=== PATIENT | female | born 1985 | race Caucasian/White ===

== ENCOUNTER 2023-06-12 10:20 | Emergency (ER) | payer OTHER, SELFPAY ==
[2023-06-12 10:39] VITALS: BP 124/74; PULSE 58; RESP 16; TEMP 36.6; O2SAT 99; BMI 26.5
--- NOTE | 2023-06-12 11:47 | W.ED.FALL ---
HPI - Fall General: Chief Complaint: Fall Stated Complaint: fall off a horse, head lac, rib pain Time Seen by Provider: 06/12/23 11:25 History of Present Illness: 37-year-old female was [place] horse [place] a trail. She got a spiderweb in her eyes and used both of her hands to remove it. She made a loud noise when the spiderweb hit her face. This scared the horse who ultimately bucked her off. She landed on her right side. She has a scalp laceration to the right posterior temporal region. It is hemostatic at this time. She reports her tetanus is up-to-date. She does not take blood thinners. No loss of consciousness. She has soreness to the touch of the scalp but not an internal headache. Denies symptoms of concussion. Denies neck pain, spine pain, abdominal pain, hip pain, lower extremity pain, left upper extremity pain, right upper extremity pain. She does have abrasions and contusions along the right lateral chest. She reports that it does not hurt to take a deep breath and she is not having any shortness of breath. She believes that it is superficial. She does not want a chest x-ray. She reports a mild tenderness over her right lateral thigh because she was wearing a pocket knife and when she felt the knife (albeit closed) pressed into the soft tissue of her thigh and bruised her. She is refusing any pain medication. Review of Systems Narrative: Pertinent Positives: scalp lac right chest wall bruising/abrasions bruise right thigh Pertinent Negatives: No LOC, n/v, visual changes, confusion, dizziness, spine/neck pain, abd pain, trouble walking, trouble with coordination 12 Point ROS performed and otherwise negative unless stated here or HPI. Physical Exam Narrative: EXAM NARRATIVE: No midline TTP or step-offs of cervical, thoracic, and lumbar spine; normal ROM of bilateral shoulders, elbows, wrists, hips, knees, and ankles with no palpable bony deformity or tenderness; pelvis stable. Primary Survey: Airway: Intact Breathing: Equal Circulation: Intact, +pedal and radial pulses, +femoral pulses and +carotid pulse Disability: GCS 15 Exposure: See physical exam in secondary survey Initiated in resuscitation: none Secondary Survey: HEENT: Normocephalic, eyes, nose, ears within normal limits, scalp laceration right temperoparietal with dry blood Pupils: PERRL, equal, reactive, EOMI, no trauma Tympanic Membrane: Clear Face: Stable, no injuries Mandible: Occlusion normal, no dental trauma Neck: Trachea midline Lungs: CTAB Heart: radial pulses 2+, rate 60 Spine: Nontender, no step-offs Chest: abrasions right chest and upper abd laterally, does not hurt to take a deep breath or squeeze ribs in AP direction Abdomen: Soft, nontender and nondistended, no guarding Pelvis: Stable Extremities: Moves all 4 to commands, 5/5 strength bilateral upper and lower extremities. Skin: abrasions/contusion right lateral chest wall, scalp lac Procedures Laceration Laceration 1: Site: scalp (right temporal) Side (If applicable): right Size (cm): 1 Description: linear Depth: simple, single layer Local Anesthetic: lidocaine 1% (5ml) and with epi Amount of anesthesia used (mL): 5 Pre-repair: wound explored, irrigated extensively (flushed out, examined, flushed with peroxide to remove clots) and deep structures intact Skin layer closed with: other (kaushik) Number of sutures: 2 Technique: other (kaushik) Course Vital Signs: Vital signs: Vital Signs Temperature 97.9 F 06/12/23 10:39 Pulse Rate 58 L 06/12/23 10:39 Respiratory Rate 16 06/12/23 10:39 Blood Pressure 124/74 06/12/23 10:39 Pulse Oximetry 99 06/12/23 10:39 Oxygen Delivery Me thod Room Air 06/12/23 10:39 MDM - Fall Medical Decision Making 1. Closed head injury without loss of consciousness. Normal neurologic examination. No high risk factors. Clinical suspicion of severe traumatic brain injury is low. Recommend observation over CT scan. For the scalp laceration we will clean with hydrogen peroxide, evaluate wound further, cleanse wound, anesthetized with local infiltration of lidocaine with epinephrine, stable. 2. Right lateral chest wall contusions and abrasions. Patient refused chest x-ray. Normal work of breathing, normal breath sounds, no crepitus, no mobile ribs, palpation in the AP direction does not cause tenderness. Patient thinks it is simply superficial. I did certified alcohol drug counselor about the possibility of broken ribs and pneumothorax. Patient aware and has made an informed decision not to have imaging. 3. Contusion right side. No further work-up, usual care. 4. No other injuries. Tetanus up-to-date. Refusing pain medication. Discharge Plan Discharge Patient Disposition: Home Clinical Impression: Closed head injury without loss of consciousness, Chest wall contusion, Abrasion of chest wall, Contusion of right thigh, initial encounter, Fall from horse Condition: Stable Prescriptions: No Action dexmethylphenidate 20 mg capsule,ER biphasic 50-50 20 mg PO DAILY Discharge Orders: Discharge ED (Routine); Ordered 06/12/23 Ordered By: Bello Mcclure Discharge Diet: Usual diet Discharge Activity: Increase activity as tolerated Patient Instructions: Pain Management, Head Injury (ED), Puncture Wound (ED), Contusion in Adults (ED) Coding Level of Care Code ED Computer Hardware Technician for Alisa Gomez
[2023-06-12] MEDS: lidocaine-epi 1% 20 mL INJ INJECTION (11:52)
--- NOTE | 2023-06-12 11:52 | PC.NURSE ---
Lidocaine-epi given by Dr. Mcclure.
[2023-06-12 12:13] VITALS: BP 142/75
--- NOTE | 2023-06-12 12:38 | PC.NURSE ---
Per doctors orders, patient needed head bandaged where kaushik were put in. Patient refused a bandage on head. Physician notified.
[2023-06-12 12:54] VITALS: BP 126/73; PULSE 62; O2SAT 100
--- NOTE | 2023-06-16 11:15 | DCPLANNER ---
sustainability manager called patient due to no primary care physician - no answer at this time.
--- NOTE | 2023-07-12 13:25 | DCPLANNER ---
senior manager asset protection called patient due to no primary care physician - patient declines at this time
== END 2023-06-12 12:57 | disposition home or self-care (01) ==
PROVIDERS: Emergency Provider Emergency Medicine
DX: S01.01XA Laceration without foreign body of scalp, initial encounter (principal); S20.211A Contusion of right front wall of thorax, initial encounter; S70.11XA Contusion of right thigh, initial encounter; S20.311A Abrasion of right front wall of thorax, initial encounter; S09.8XXA Other specified injuries of head, initial encounter; V80.010A Animal-rider injured by fall from or being thrown from horse in noncollision accident, initial encounter
CPT/HCPCS: 12001; 99282